=== PATIENT | male | born 1995 | race Caucasian/White ===

== ENCOUNTER 2021-02-16 | Emergency (ER) | payer BC, OTHER ==
--- NOTE | 2021-02-16 01:22 | ED ---
General Adult HPI - General Chief complaint: ENT Stated complaint: Poss bug in LT ear Time Seen by Provider: 02/16/21 01:08 Source: patient Mode of arrival: ambulatory Limitations: no limitations - History of Present Illness Initial comments: 25 year-old male patient presents to the emergency department for evaluation of foreign body to the left ear. Patient states he was sleeping and woke when he felt something in his left ear. States he believes it is a bug. States he did try to get it out with his finger and with tweezers. States he did not put the tweezers in very far, but believes he did kill the bug because he has not felt anymore movement. States he is having some bloody drainage from the ear. Denies any significant pain but states he feels like he is having trouble hearing. - Related Data Allergies Allergy/AdvReac Type Severity Reaction Status Date / Time No Known Allergies Allergy Verified 02/16/21 01:07 Review of Systems ROS Statement: Those systems with pertinent positive or pertinent negative responses have been documented in the HPI. ROS Other: All systems not noted in ROS Statement are negative. Past Medical History Past Medical History: No Reported History History of Any Multi-Drug Resistant Organisms: None Reported Past Surgical History: No Surgical Hx Reported Past Psychological History: No Psychological Hx Reported Smoking Status: Current every day smoker Past Alcohol Use History: Occasional Past Drug Use History: None Reported General Exam Limitations: no limitations General appearance: alert, in no apparent distress, other (This is a well- developed, well-nourished adult male patient in no acute distress.) ENT exam: Present: mucous membranes moist, TM's normal bilaterally, other (There is black foreign body noted to the left ear canal, close to the outer ear. There is bleeding abrasion of the ear canal. TM is intact without injury or perforation.) Respiratory exam: Present: normal lung sounds bilaterally. Absent: respiratory distress, wheezes, rales, rhonchi, stridor Cardiovascular Exam: Present: regular rate, normal rhythm, normal heart sounds. Absent: systolic murmur, diastolic murmur, rubs, gallop, clicks Neurological exam: Present: alert, oriented X3, CN II-XII intact Psychiatric exam: Present: normal affect, normal mood Skin exam: Present: warm, dry, intact, normal color. Absent: rash Course Vital Signs 02/16/21 01:04 Temperature 97.8 F Pulse Rate 106 H Respiratory 18 Rate Blood Pressure 133/71 O2 Sat by Pulse 98 Oximetry Procedures - Foreign Body Removal Ear Location: ear canal (L) Foreign Body Suspected: insect If Insect Suspected: ear canal inspected; intact TM, insect seen Foreign Body Removed: yes Foreign Body Removal Technique: instrumentation Tympanic Membrane Intact: Yes Patient Tolerated Procedure: well, no complications Medical Decision Making - Medical Decision Making 25-year-old male patient presented to the emergency department today for evaluation of foreign body to the left ear, he believed it was a bug. Physical examination did reveal black foreign body, this was removed with alligator forceps did appear to be an insect. Re-inspection of the ear showed additional black foreign body to the left ear closer to the TM, this was irrigated and insect wing was removed. Ear canal was re-inspected and was clear. Patient will be discharged to follow-up with his primary care physician for recheck in 1-2 days. Instructed to follow-up with ENT as needed. Return for any new, worsening, or concerning symptoms. Case discussed my attending Dr. Victoria. Disposition Clinical Impression: Foreign body in left ear Disposition: HOME SELF-CARE Condition: Good Instructions (If sedation given, give patient instructions): Ear Foreign Body (ED) Additional Instructions: Follow-up with ENT if necessary. Follow up with her primary care physician for recheck in 1-2 days. Return for any new, worsening, or concerning symptoms. Is patient prescribed a controlled substance at d/c from ED?: No Referrals: Juan Abraham MD [Primary Care Provider] - 1-2 days Long Estrella MD [STAFF PHYSICIAN] - 1-2 days Time of Disposition:
== END 2021-02-16 01:29 | disposition home or self-care (01) ==
CPT/HCPCS: 69200; 99282